=== PATIENT | female | born 1950 | race Two or more races ===

== ENCOUNTER 2024-05-01 16:44 | Outpatient (REF) | payer BC, SELFPAY ==
--- OUTSIDE RECORDS SUMMARY | 2024-05-01 16:59 | XMS_ITS | Data Portability ---
Author Organization [place] - [facility] Address Eliza Crawford [facility] [place] [address] Assessment No assessment recorded. Plan of Treatment Reminders Order Date Submit Date Provider Last Modified By Organization Details Last Modified Time Details Appointments Follow Up 2023 01:00P M Gloria Britt Not available Not available Not available Follow Up 2023 11:40A M Gloria Britt Not available Not available Not available Lab None record ed. Referral None record ed. Procedures None record ed. Surgeries None record ed. Imaging None record ed. Medication Orders amlodi pine 5 mg tablet 2022 023 [email or web address] [facility][id number] [address], [id number], 09/30/2023 14:05:58 amlodi pine 10 mg tablet 2022 023 [facility] #[id number] [address], [place], [id number], 10/09/2023 11:28:14 losart an 25 mg tablet 2022 023 [facility] #[id number] [address], [place], [id number], 10/09/2023 11:28:14 Patient TargetsNo targets recorded. Patient Instructions Encounter Date Encounter Id Patient Instructions Last Modified By Organization Details Last Modified Time 08/29/2023 [id number] Start amlodipine. Rx sent to [facility]. Goal blood pressure is under 140/90. Follow up with me in 2-3 weeks for blood pressure recheck and check in. francisca Not available 08/29/2023 17:17:26 Reason for Referral None Reported. Problems Name Status Onset Date Resolution Date Notes Provider Name and Address Organization Details Recorded Time Essential hypertension Active 08/29/20 23 GLORIA MOLINA, [facility] [address], [place], [address], [facility] 08/29/2023 17:47:16 Raynaud's phenomenon Active 08/29/20 23 [facility]OLINA, [facility] [address], [facility] [address], [facility] 08/29/2023 17:47:57 Problem Notes None recorded. Procedures Surgical History Date Name Laterality Status Provider Name and Address Organization Details Recorded Time 5 classical section completed Ca Chaudhry LPN null, [facility] 08/29/2023 16:47:17 5 Tubal Ligation completed Ca Chaudhry LPN null, [facility] 08/29/2023 16:47:59 4 classical section completed Ca Chaudhry LPN null, [facility] 08/29/2023 16:47:11 classical section completed Ca Chaudhry LPN null, [facility] 08/29/2023 16:47:32 Imaging Results None recorded. Procedure Notes None recorded. Medical Equipment None Reported. Allergies Allergen ID Allergen Name Allergen Category Reaction Reaction Severity Criticality Documentation Date Start Date Code Code System Note Provider Name and Address Organization Details Recorded Time 69160 hornet venom environme nt anaphylax is severe high 08/29/20232002 white faced schuster t; EPIPE N SHARYN [address], [place], [address], [facility] 4 13:06:53 19168 poison kathe extract environme nt rash moderate Not available 08/29/2023 85448 6 RxNorm has requi red oral stero ids GLORIA BRITT, [facility]- [address], [place], [address] [place] [address] 3 17:04:23 Medications Name Sig Start Date Stop Date Status Note LastModified by Organization Details LastModified Time amoxicillin 500 mg capsule 08/29 completed Not Available Not Available Not Available doxycycline hyclate 100 mg capsule TAKE 2 CAPSULES NEEDED DIRECTED active Not Available Not Available No t Available penicillin V potassium 500 mg tablet TAKE 1 TABLET EVERY 6 HOURS UNTIL COMPLETED 08/29 completed Not Available Not Available Not Available amlodipine 5 mg tablet TAKE 1 TABLET BY MOUTH EVERY DAY 09/30 completed Not Available Not Available Not Available amlodipine 10 mg tablet TAKE 1 TABLET BY MOUTH EVERY DAY active Not Available Not Available No t Available losartan 25 mg tablet TAKE 1 TABLET BY MOUTH EVERY DAY active Not Available Not Available No t Available chlorhexidi ne gluconate 0.12 % mouthwash RINSE AND SPIT 10 ML BY MOUTH TWICE DAILY FOR 1 WEEK 08/29 completed Not Available Not Available Not Available Vitals Date Recorded Body height Body mass index (BMI) Body weight Systolic blood pressure Diastolic blood pressure Provider Name and Address Organization Details Last Updated DateTime 08/29/2023 170.82 cm 33.6 kg/m2 62145.95 g 168 mm[Hg] 92 mm[Hg] Ca rubio LPN [facility] 3 16:07:51 Date Recorded Body height Body mass index (BMI) Body weight Heart rate Systolic blood pressure Diastolic blood pressure Provider Name and Address Organization Details Last Updated DateTime 3 170.82 cm 33.4 kg/m2 82386.3 6 g 102 /min 162 mm[Hg] 90 mm[Hg] Ca rubio LPN [facility] 3 16:00:28 Date Recorded Body height Heart rate Systolic blood pressure Diastolic blood pressure Provider Name and Address Organization Details Last Updated DateTime 10/21/2023 170.82 cm 108 /min 144 mm[Hg] 70 mm[Hg] Ca Chaudhry LPN [facility], [facility]. 10/21/2023 13:31:20 Date Recorded Body height Heart rate Systolic blood pressure Diastolic blood pressure Provider Name and Address Organization Details Last Updated DateTime 05/01/2024 170.82 cm 96 /min 160 mm[Hg] 72 mm[Hg] Ca Chaudhry LPN [facility] 05/01/2024 13:14:23 Social History Question Answer Notes LastModified by Organizat ion Details LastModified Time Tobacco Smoking Status Never Smoker GLORIA GREEN, [facility]- [address], [place], [address], [facility] 08/29/2023 17:55:37 Do You Have An Advance Directive? No [email or web address] Information not available 08/29/2023 What Is Your Level Of Alcohol Consumption? None Stopped Alcohol 05/2023 Information not available 08/29/2023 Are You Blind Or Do You Have Difficulty Seeing? No Information not available 08/29/2023 Are You Currently Employed? Yes Information not available 08/29/2023 Are You Deaf Or Do You Have Serious Difficulty Hearing? No Information not available 08/29/2023 What Type Of Diet Are You Following? REGULAR [email or web address] Information not available 08/29/2023 Which Illicit Or Recreational Drugs Have You Used? 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 3-4 Times Per Week [email or web address] Information not available 08/29/2023 Would You Say That, In General, Your Health Is Very Good Information not available 08/29/2023 How Often Does Anyone, Including Family, Physically Hurt You? Never Information not available 08/29/2023 How Often Does Anyone, Including Family, Insult Or Talk Down To You? Never Information no t available 08/29/2023 How Often Does Anyone, Including Family, Threaten You With Harm? Never Information not available 08/29/2023 How Often Does Anyone, Including Family, Scream Or Curse At You? Never Information not available 08/29/2023 Within The Past 12 Months, You Worried That Your Food Would Run Out Before You Got Money To Buy More. Sometimes True Information not available 08/29/2023 Within The Past 12 Months, The Food You Bought Just Didn't Last And You Didn't Have Money To Get More. Never True Information not available 08/29/2023 How Hard Is It For You To Pay For The Very Basics Like Food, Housing, Medical Care, And Heating? Would You Say It Is: Not Hard At All Information not available 08/29/2023 In The Past 12 Months, Has Lack Of Reliable Transportation Kept You From Medical Appointments, Meetings, Work Or From Getting Things Needed For Daily Living? No Information not available 08/29/2023 What Is Your Housing Situation Today? I Have Housing. Information not available 08/29/2023 Hearing Barrier No [email or web address] Inform ation not available 08/29/2023 Vision Barrier No [email or web address] Informa tion not available 08/29/2023 Social Barrier No [email or web address] Informa tion not available 08/29/2023 Medical Literacy No [email or web address] Infor mation not available 08/29/2023 Learning Barrier No [email or web address] Infor mation not available 08/29/2023 Transportation Barrier No [email or web address] Information not available 08/29/2023 Financial Barrier No [email or web address] Info rmation not available 08/29/2023 Dental Services Yes [email or web address] Inform ation not available 08/29/2023 What Was The Date Of Your Most Recent Tobacco Screening? 05/01/2024 [email or web address] Information not available 05/01/2024 How Many Children Do You Have? 2 [email or web address] Information not available 08/29/2023 What Is Your Relationship Status? Information not available 08/29/2023 What Types Of Sporting Activities Do You Participate In? WALKING, SWIMMING [email or web address] Information not available 08/29/2023 Do You Use Any Illicit Or Recreational Drugs? Yes Information not available 08/29/2023 Have You Used IV Drugs? No Information not available 08/29/2023 Are You Currently In School? No [email or web address] Information not available 08/29/2023 Do You Have Any Dietary Restrictions? No [email or web address] Information not available 08/29/2023 Do You Or Have You Ever Used Any Other Forms Of Tobacco Or Nicotine? No Information not available 08/29/2023 Sex: Female Functional Status Question Answer Note LastModified by Organizat ion Details LastModified Time Do you have difficulty walking or climbing stairs? No Information not available 08/29/2023 Do you have transportation difficulties? No Information not available 08/29/2023 Are you able to walk? YESWOREST Information not available 08/29/2023 Do you have difficulty doing errands alone? No Information not available 08/29/2023 Are you able to care for yourself? Yes Information not available 08/29/2023 Do you have difficulty dressing or bathing? No Information not available 08/29/2023 What is your exercise level? Moderate [email or web address] Information not available 08/29/2023 Mental Status Question Answer Note LastModified by Organization D etails LastModified Time Do you have difficulty concentrating, remembering or making decisions? No Information no t available 08/29/2023 Family History Relationship Description Onset Age of this Age Resolved Age Notes Mother Hypertensive disorder 80 90 Mother Malignant neoplastic disease 93 ?type; blood argelia t showed previously undetected, fast-developing cancer; refused medication Brother Multiple sclerosis 30 i n remission Father Multiple myeloma 80 90 Medical History Condition Response Kidney Stones N Breast Cancer N Lung Disease N Defects or Inherited Disease N Multiple Sclerosis N Brain Injury N Anesthesia Complications N Gastrointestinal Disease N Muscle, Joint, or Bone Problems N Bleeding Disorder N Vision or Eye Problems N Seizures/Epilepsy N Cancer N Stroke N Diverticulitis N Substance Abuse N Bladder or Kidney Problems N Back Injury N Neurologic Disorder N Liver Disease N Heart Disease N Psychiatric/Mental Health Condition N Pulmonary Embolism N Pre-Eclampsia N Gynecological HistoryNo gynecological history recorded. Obstetrics History GPAL:G 4 P 2 0 2 2 Type Value Full Term 2 Spontaneous 2 Premature 0 Living 2 Total 4 Immunizations Vaccine Type Date Status Provider Name and Address Organization Details Recorded Time Tdap 05/01/2024 completed Ca Chaudhry LPN [facility], [facility] 05/01/2024 15:51:46 Past Encounters Encounter ID Performer Location Encounter Start Date Encounter Closed Date Diagnosis/Indication Diagnosis SNOMED-CT Code [id number] GLORIA MOLINA, [address] [address] 08/29/2023 15:10:49 08/29/2023 17:39:16 Essential hypertension 98034547 Raynaud's phenomenon 266 317473 [id number] GLORIA MOLINA, [address] [address] 09/27/2023 15:01:45 09/27/2023 15:04:07 Essential hypertension 99752816 [id number] GLORIA MOLINA, [address] [address] 10/21/2023 12:40:58 10/21/2023 14:06:32 Essential hypertension 37592559 [id number] MEREDITH LEMUS [address] [address] 05/01/2024 12:29:07 05/01/2024 14:25:27 Essential hypertension 21240919 Adult [facility] th examination 328005966 Active or passive immunization 265389937 Health Concerns Section Related Observation LastModified by Organization Detai ls LastModified Time None Recorded Concern Status LastModified by Organization Details LastModified Time None Recorded Advance Directives Directive N: Payers Encounter Date Sequence Insurance Name Policy Number Policy Ortiz Covered Member ID Ortiz Member ID Guarantor Name 08/29/2023 1 [employer] (MEDICARE REPLACEMENT PPO) [id number] Lissette Walters [id number] Lissette Walters 09/27/2023 1 [facility]: FRANCISCA RODRIGUEZ [facility] (MEDICARE [facility]PLAC[place] PPO) [id number] Lissette Walters [id number] Lissette Walters 10/21/2023 1 [employer] FRANCISCA MICHAEL [facility] (MEDICARE REPLACEMENT PPO) [id number] Lissette Walters [id number] Lissette Walters Notes Date Note Type Note Provider Name and Address Organization Details Recorded Time 08/29/2023 text/html HPI Notes: here to establish care and manage blood pressure [facility] [address], [place], [address], [facility] 08/29/2023 18:05:35 09/27/2023 text/html HPI Notes: follo w up HTN, started amlodipine 3-4 weeks ago, tolerating well, thinks might be helping her Reynauds. Ca Chaudhry LPN [facility], [facility] 10/08/2023 08:56:00 10/21/2023 text/html HPI Notes: Hypertension F/U Reported by patient. Notes: Taking amlodipine 10mg and losartan 25mg po qd without difficulty, has notes mild postural lightheadedness, which she recalls having when she was much younger. No syncope/presyncope . Has also noted slight dry mouth on these meds, but feels this is tolerable. No other concerns today. Did have a cold a few weeks ago, and wants to know what cold meds it is OK to take. Denies cough, chest pain, SOB, other pain, any other symptoms today. ANDREINA ADKINS [address], [place], [address], [facility]. 10/31/2023 20:35:29 OBGyn Episode No OBEpisode recorded.
[2024-05-01 19:20] LABS: Anion Gap 9.9 mmol/L (3-11); BUN 19 mg/dL (7-18); CO2 27.1 mmol/L (21.0-32.0); CREATININE 0.9 mg/dL (0.55-1.02); Chloride 104 mmol/L (98-107); Estimated GFR 67.08 (mL/min/1.73m2); Glucose 96 mg/dL (74-106); Potassium 4.1 mmol/L (3.5-5.1); Sodium 141 mmol/L (136-145)
== END 2024-05-01 16:45 | disposition home or self-care (01) ==
LOC: NCHCN 16:44
PROVIDERS: Visit Provider Nurse Practitioner Family
DX: I10 Essential (primary) hypertension (principal)
CPT/HCPCS: 80048

== ENCOUNTER 2025-05-28 16:50 | Outpatient (REF) | payer BC, SELFPAY ==
[2025-05-28 16:11] LABS: Anion Gap 8.9 mmol/L (3-11); BUN 19 mg/dL (7-18); CO2 31.1 mmol/L (21.0-32.0); Calcium 9.9 mg/dL (8.5-10.1); Chloride 102 mmol/L (98-107); Estimated GFR 90.14 (mL/min/1.73m2); Glucose 112 mg/dL (74-106); Potassium 4.2 mmol/L (3.5-5.1); Sodium 142 mmol/L (136-145)
== END 2025-05-28 16:51 | disposition home or self-care (01) ==
LOC: NCHCN 16:50
PROVIDERS: PCP Nurse Practitioner Family; Visit Provider Nurse Practitioner Family
DX: I10 Essential (primary) hypertension (principal)
CPT/HCPCS: 80048

== ENCOUNTER 2025-07-09 14:03 | Outpatient (REF) | payer BC, SELFPAY ==
[2025-07-09 16:27] LABS: Anion Gap 6.4 mmol/L (3-11); BUN 19 mg/dL (7-18); CO2 31.6 mmol/L (21.0-32.0); Calcium 10.0 mg/dL (8.5-10.1); Chloride 102 mmol/L (98-107); Estimated GFR 90.14 (mL/min/1.73m2); Glucose 100 mg/dL (74-106); Potassium 3.6 mmol/L (3.5-5.1); Sodium 140 mmol/L (136-145)
== END 2025-07-09 14:04 | disposition home or self-care (01) ==
LOC: NCHCN 14:03
PROVIDERS: PCP Nurse Practitioner Family; Visit Provider Nurse Practitioner Family
DX: I10 Essential (primary) hypertension (principal)
CPT/HCPCS: 80048

== ENCOUNTER 2025-08-11 09:46 | Outpatient (REF) | payer MEDICARE, SELFPAY ==
[2025-08-11 15:40] LABS: Anion Gap 7.4 mmol/L (3-11); BUN 18 mg/dL (7-18); CO2 31.6 mmol/L (21.0-32.0); Calcium 9.7 mg/dL (8.5-10.1); Chloride 102 mmol/L (98-107); Glucose 76 mg/dL (74-106); Potassium 3.2 mmol/L (3.5-5.1); Sodium 141 mmol/L (136-145)
== END 2025-08-11 09:47 | disposition home or self-care (01) ==
LOC: NCHCN 09:46
PROVIDERS: PCP Nurse Practitioner Family; Visit Provider Nurse Practitioner Family
DX: I10 Essential (primary) hypertension (principal)
CPT/HCPCS: 80048